=== PATIENT | female | born 1945 | race Caucasian/White ===

== ENCOUNTER → 2017-02-19 13:08 | Outpatient (CLI) | payer MEDICARE, OTHER ==
[2016-02-20 12:34] VITALS: BMI 32.8
[~2017-02-19 13:08] MED LIST: ALLER-CHLOR4 MG PO; BAYER CHEWABLE81 MG PO; COLACE100 MG PO; HEMOCYTE PLUS C1 CAP PO; HYDROCODONE-APA1 TAB PO; K-DUR20 MEQ PO; LANTUS INSULIN10 ML SC; LASIX40 MG PO; LISINOPRIL10 MG PO; LOPRESSOR25 MG PO; MULTIPLE VITAMI1 TA1 PO; SENOKOT-S TABLE1 TAB PO
== END | disposition home or self-care (01) ==
LOC: D.US 13:08
DX: I25.10 Atherosclerotic heart disease of native coronary artery without angina pectoris (principal); I73.9 Peripheral vascular disease, unspecified

== ENCOUNTER → 2017-05-22 13:56 | Outpatient (CLI) | payer MEDICARE, OTHER ==
[2016-02-20 12:34] VITALS: BMI 32.8
== END | disposition home or self-care (01) ==
LOC: D.MAMMO 09:00
DX: Z85.3 Personal history of malignant neoplasm of breast (principal)

== ENCOUNTER → 2017-09-30 07:38 | Outpatient (CLI) | payer MEDICARE, OTHER ==
[2016-02-20 12:34] VITALS: BMI 32.8
== END | disposition home or self-care (01) ==
LOC: D.CT 07:38
DX: R91.1 Solitary pulmonary nodule (principal)

== ENCOUNTER 2018-09-28 11:18 | Observation (INO) | payer MEDICARE, OTHER ==
[2018-09-28] VITALS (18 sets, daily range): BP systolic 130–177; BP diastolic 61–93; BMI 31.6
[~2018-09-28] VITALS: Ht 165.1 cm; Wt 86.8 kg
--- NOTE | ~2018-09-28 | MORECARE ---
CASE MANAGEMENT DISCHARGE SUMMARY PATIENT: LOLA AL UNIT: [id number] ADM DATE: 09/28/18 AGE: 73 : 45 SEX: F ROOM/BED: D.2111 AUTHOR: SHABBIR JOSEPH PHYSICIAN: REFERRING PHYSICIAN: MIRANDA NASH MD DATE OF SERVICE: 10/01/18 Discharge Plan Patient Name: LOLA AL Facility: [facility]:[place] : 1945 Planned Disposition: Home Anticipated Discharge Date: 09/30/18 Discharge Date: 09/30/2018 Expected LOS: 2 Initial Reviewer: [email or web address] Initial Review Date: 10/01/2018 Generated: 10/01/18 7:47 am Patient Name: LOLA AL Page 10719 at 0647 All edits/amendments must be made on the electronic document DICTATION DATE: 10/01/18646 FILM SORTER: CLEMENTE 10/01/18646 RPT#: [id number] DC DATE:09/30/18 STATUS: DIS IN [facility] [address] [place] [address] END OF REPORT
--- NOTE | ~2018-09-28 | HEMODYNAMI ---
PATIENT:LOLA AL MEDICAL RECORD: [id number] : 45 LOCATION:D. D.2111 ADMISSION DATE: 09/28/18 Generatedon:09/29/201815:49 Patient name: LOLA AL Patient #: [id number] SSN: D OB: 1945 Date of study: 09/29/2018 Page: Of Hemodynamic Procedure Report Patient Data Patient Demographics Procedure consent was obtained First Name: LOLA Gender: Female Last Name: MIKAELA : 1945 [facility] Initial: L Age: 73 year(s) Patient #: [id number] Race: Additional ID: [id number] Contact details [address]: [address] [place] [address] State: [place] City: [place] Zip code: [address] Past Medical History Allergies Allergen Reaction Date Comments Reported Penicillins 09/29/2018 Other allergy 09/29/2018 simvastatin, atorvastatin, nitrofurantin Admission Admission Data Admission Date: 09/28/2018 Admission Time: 13:36 Admit Source: Other Room #: D.2111 Procedure Procedure Types Cath Procedure Diagnostic Procedure [facility] w/Coronaries w/Grafts Sedation Charges Moderate Sedation up to 30 minutes PCI Procedure AMI/SVG/OUTDOOR ADVENTURE GUIDES PTCA or Stent SVG-BMS/SUPA Initial Procedure Description Procedure Date Procedure Date: 09/29/2018 Procedure Start Time: 15:10 Procedure End Time: 15:48 Procedure Staff Name Function Vanda Guerra RT Monitor Carl Amor RT Scrub Antonino Groves RN Nurse Polo Saxena RT Coremaker Apprentice Joe Jett MD Performing Physician Procedure Data Cath Procedure Fluoroscopy Diagnostic fluoroscopy Total fluoroscopy Time: 6.8 time: 6.8 min min Diagnostic fluoroscopy Total fluoroscopy dose: dose: 1185 mGy 1185 mGy Contrast Material Contrast Material Type Amount (ml) Isovue 300 134 Entry Location Entry Primary Successful Side Size Upsize Upsize Entry Closure Succes sful Closure Location (Fr) 1 (Fr) 2 (Fr) Remarks Device Remarks Femoral Right 5 Fr 6 Fr Exoseal artery Short Estimated blood loss: 10 ml Diagnostic catheters Device Type Used For End Catheter Placement MULTIPACK JL 4.0 5Fr Left Coronary catheter Angiography DIAGNOSTIC AR MOD 5Fr Right Coronary Catheter ([id number]) Angiography DIAGNOSTIC AR MOD 5Fr SVG Angiography Catheter ([id number]) DIAGNOSTIC IM 5Fr Internal mammary catheter ([id number]) arteriography MULTIPACK Pigtail 5 Fr LV Angiography catheter Procedure Complications No complications Procedure Medications Medication Administration Route Dosage Oxygen etCO2 Nasal cannula 2 l/min Lidocaine 2% added to field 20 Heparin Flush Bag added to field 2 bags (1000units/500ml NS) 0.9% NaCl I.V. 100 ml/hr Versed I.V. 1 mg Fentanyl I.V. 50 mcg Versed I.V. 1 mg Fentanyl I.V. 50 mcg Cardene Cardene I.C. 300 mcg Heparin Bolus I.V. 9000 units Plavix P.O. 75 mg Hemodynamics Rest Heart Rate: 72 (bpm) Pressure Samples Time Site Value (mmHg) Purpose Heart Use Rate(bpm) 15:20 LV 133/5,25 EDP 76 15:21 AO 134/61(92) Pullback 80 15:21 LV 138/7,36 Pullback 80 Gradients Valve Time Site 1 Site 2 Mean SEP/DFP Peak To Heart Use (mmHg) (sec/min) Peak Rate (mmHg) (bpm) Aortic 15:21 LV AO 8 24 4 80 138/7,36 134/61(92) Calculations Valve P-P Mean Valve Index Valve Source Name Gradient Area Flow (cm2) Aortic 4 8 4 8 Snapshots Pre Cath Intra NCS Post Cath Vital Signs Time Heart Resp SPO2 etCO2 NIBP (mmHg) Rhythm Pain Sedation Rate (ipm) (%) (mmHg) Status Level (bpm) 14:59:58 74 24 95 33.2 161/84(138) NSR 0 (11) 10(A) , No pain 15:04:18 74 26 94 21.9 151/82(124) NSR 0 (11) 10(A) , No pain 15:08:30 72 20 93 29.5 133/71(110) NSR 0 (11) 10(A) , No pain 15:12:46 72 16 94 10.6 128/69(104) NSR 0 (11) 9(A) , No pain 15:17:00 76 17 94 40.8 127/73(106) NSR 0 (11) 9(A) , No pain 15:21:14 87 16 94 39.3 125/70(100) NSR 0 (11) 9(A) , No pain 15:25:30 75 17 94 40.8 122/63(92) NSR 0 (11) 9(A) , No pain 15:29:42 74 16 95 41.6 116/67(91) NSR 0 (11) 9(A) , No pain 15:33:54 76 16 94 40.8 112/65(80) NSR 0 (11) 9(A) , No pain 15:38:04 78 17 93 41.6 110/65(87) NSR 0 (11) 9(A) , No pain 15:42:14 77 18 94 41.6 116/65(94) NSR 0 (11) 9(A) , No pain 15:46:24 81 20 95 37.1 125/71(99) NSR 0 (11) 10(A) , No pain Medications Time Medication Route Dose Verified Delivered Reason Notes Effectiveness by by 15:02:39 Oxygen etCO2 2 Buffie Buffie used for Nasal l/min Yaneli Groves RN procedure cannula 15:03:04 Lidocaine 2% added 20ml Buffie Joe for local to vial Yaneli Jett MD anesthetic field 15:03:09 Heparin Flush added 2 Buffie Joe used for Bag to bags Yaneli Jett MD procedure (1000units/500ml field NS) 15:03:18 0.9% NaCl I.V. 100 Buffie Buffie Per physician ml/hr Yaneli Groves RN 15:06:42 Versed I.V. 1 mg Buffie Buffie for sedation Yaneli Groves RN 15:06:47 Fentanyl I.V. 50 Buffie Buffie for sedation mcg Yaneli Groves RN 15:18:51 Versed I.V. 1 mg Buffie Buffie for sedation Yaneli Groves RN 15:18:55 Fentanyl I.V. 50 Buffie Buffie for sedation mcg Yaneli Groves RN 15:30:51 Cardene mcg- Buffie Buffie Mixed on Yaneli Groves RN and field ready for use on the table. 15:32:27 Cardene I.C. 300 Buffie Buffie for mcg Yaneli Groves RN vasodilation 15:32:38 Heparin Bolus I.V. 9000 Buffie Buffie for verif ied units Yaneli Groves RN anticoagulation with dr jett 15:47:17 Plavix P.O. 75 mg Buffie Buffie for Yaneli Groves RN antiplatelet therapy Procedure Log Time Note 14:37:04 Informed consent obtained and on chart 14:37:06 Admit Source: Other 14:37:32 Diagnostic Cath status Elective 14:37:34 Polo Saxena RT(R) sent for patient. Start room use. 14:37:34 Time tracking: Regular hours (M-F 7:00 - 5:00) 14:37:37 Plan of Care:Hemodynamics will remain stable., Cardiac rhythm will remain stable., Comfort level will be maintained., Respiratory function will remain adequate., Patient/ family verbilizes understanding of procedure., Procedure tolerated without complication., Recovers from procedure without complications.. 14:50:11 Patient received from PCU to CCL 2 Alert and oriented. Tansferred to table in Supine position. 14:50:12 Warm blankets applied, and edwin hugger turned on for patient comfort. 14:50:13 Correct patient and procedure confirmed by team. 14:50:14 ECG and BP/O2 sat monitors applied to patient. 14:50:15 Full Disclosure recording started 14:58:45 Vital chart was started 14:58:49 Rhythm: sinus rhythm 14:59:05 H&P Date Dictated: 09/28/2018 Within 30 days and on chart.. 14:59:07 Pre-procedure instructions explained to patient. 14:59:08 Pre-op teaching completed and patient verbalized understanding. 14:59:09 Family in patients room. 14:59:12 Patient NPO since Midnight. 14:59:21 Patient allergic to Penicillins 15:00:19 Patient allergic to Other allergysimvastatin, atorvastatin, nitrofurantin 15:00:21 Is the patient allergic to Iodine/contrast media? No. 15:00:23 Is patient on blood thinner?Yes 15:00:26 ACC The patient was administered the following blood thiners within the last 24 hours: ACCPlavix 15:00:28 Patient diabetic? Yes. 15:00:34 If diabetic: On Metformin? No 15:00:37 Previous problem with sedation/anesthesia? No ? 15:00:38 Snore? Yes 15:00:39 Sleep apnea? No 15:00:40 Deviated septum? No 15:00:41 Opens mouth fully? Yes 15:00:42 Sticks out tongue? Yes 15:00:43 Airway obstruction? No ? 15:00:45 Dentures? No ? 15:00:47 Pre procedure: right dorsailis pedis pulse 2+ Normal; easily identifiable; not easily obliterated 15:00:51 Patient pain scale 0/10 ?. 15:00:57 IV patent on arrival in right hand with 0.9% NaCl at [facility]. 15:01:00 Lab results completed and on chart. 15:01:04 Right groin area was prepped with chlora-prep and draped in sterile fashion 15:01:04 Alarms reviewed by R. N. 15:01:05 Sharps counted by scrub and verified by R.N. 15:01:09 Use device set Femoral Dx 15:01:09 ACIST Syringe (02701) opened to sterile field. 15:01:10 Bag Decanter (2002S) opened to sterile field. 15:01:10 Medline Cath Pack ([id number]) opened to sterile field. 15:01:11 DIAGNOSTIC WIRE .035 260cm J wire (346229) opened to sterile field. 15:01:12 ACIST Hand Control (46917) opened to sterile field. 15:01:13 ACIST Manifold (59902) opened to sterile field. 15:01:13 DIAGNOSTIC Multipack 5Fr catheter set (LW7274) opened to sterile field. 15:01:14 Tegaderm 4 x 4 (1626W) opened to sterile field. 15:01:15 SHEATH 5FR [place] (DZK117) opened to sterile field. 15:02:39 Oxygen 2 l/min etCO2 Nasal cannula was administered by Antonino Groves RN; used for procedure; 15:03:04 Lidocaine 2% 20ml vial added to field was administered by Joe Jett MD; for local anesthetic; 15:03:09 Heparin Flush Bag (1000units/500ml NS) 2 bags added to field was administered by Joe Jett MD; used for procedure; 15:03:18 0.9% NaCl 100 ml/hr I.V. was administered by Buffie Groves RN; Per physician; 15:05:35 Final Timeout: patient, procedure, and site verified with staff and physician. All members of the team are in agreement. 15:05:37 Right groin site verified by team. 15:05:40 Physical assessment completed. ASA score P 2 - A patient with mild systemic disease as per Vanda Counts RT(R). 15:05:44 Sedation plan: IV Moderate Sedation Medication:Versed, Fentanyl 15:05:52 Baseline sample Acquired. 15:06:42 Versed 1 mg I.V. was administered by Antonino Groves RN; for sedation; 15:06:47 Fentanyl 50 mcg I.V. was administered by Antonino Groves RN; for sedation; 15:10:33 Zero performed for pressure channel P1 15:10:38 Procedure started. 15:10:41 Local anesthetic to right femoral artery with Lidocaine 2% by Joe Jett MD.INITIAL ACCESS ONLY 15:11:04 Procedure type changed to Cath procedure, Diagnostic procedure, LHC, LHC w/Coronaries w/Grafts, Sedation Charges, Moderate Sedation up to 30 minutes, PCI procedure, AMI/SVG/OUTDOOR ADVENTURE GUIDES PTCA or Stent, SVG-BMS/SUPA Initial 15:11:47 A 5 Fr sheath was inserted into the Right Femoral artery 15:12:32 A MULTIPACK JL 4.0 5Fr catheter was advanced over the wire and used for Left Coronary Angiography. 15:14:32 Catheter removed. 15:14:37 A DIAGNOSTIC AR MOD 5Fr Catheter ([id number]) was advanced over the wire and used for Right Coronary Angiography. 15:15:43 A DIAGNOSTIC AR MOD 5Fr Catheter (656519M) was advanced over the wire and used for SVG Angiography. to DIAG 15:16:52 Catheter removed. 15:17:10 A DIAGNOSTIC IM 5Fr catheter ([id number]) was advanced over the wire and used for Internal mammary arteriography. TO LAD, OCCLUDED 15:18:51 Versed 1 mg I.V. was administered by Antonino Groves RN; for sedation; 15:18:55 Fentanyl 50 mcg I.V. was administered by Antonino Groves RN; for sedation; 15:19:18 Zero performed for pressure channel P1 15:20:27 Catheter removed. 15:20:32 A MULTIPACK Pigtail 5 Fr catheter was advanced over the wire and used for LV Angiography. 15:20:47 LV gram done using LANTIGUA 15:20:50 Injector settings: Ml/sec: 10, Volume: 20, 15:20:56 EF : 55 % 15:20:57 LV hemodynamics recorded. 15:24:00 Catheter removed. 15:24:27 Use device set JETT PCI 15:24:29 SHEATH 6FR [place] (UBG198) opened to sterile field. 15:24:33 TUBING High Pressure Extension Tubing (Zane) (UR1155J) opened to sterile field. 15:24:34 INFLATOR Merit BasixCompak (IW2071) opened to sterile field. 15:25:00 WHISPER 300cm guide wire ([id number]) opened to sterile field. 15:27:02 Sheath upsized to a 6 Fr Short. 15:28:35 6 Fr AR 1.0 guide catheter was inserted over the wire 15:28:40 GUIDE 6FR AR 1.0 catheter (IJ5UI10) opened to sterile field. 15:30:51 Cardene mcg- on field was administered by Antonino Groves RN; ; Mixed and ready for use on the table. 15:32:27 Cardene 300 mcg I.C. was administered by Antonino Groves RN; for vasodilation; 15:32:38 Heparin Bolus 9000 units I.V. was administered by Antonino Groves RN; for anticoagulation; verified with dr jett 15:33:49 WHISPER. wire advanced. 15:35:29 Inflate balloon Inflation number: 1 A EUPHORA 2.5 x 15 Balloon ([id number]) was prepped and advanced across the Aorta Left -> 1st Diag, then inflated to 12 TONI for 0:16 (min:sec). 15:35:41 Inflation number: 2 The EUPHORA 2.5 x 15 Balloon ([id number]) was reinflated across the Aorta Left -> 1st Diag, to 12 TONI for 0:09 (min:sec). 15:37:12 Balloon removed over the wire. 15:40:11 Place stent Inflation Number: 1 A MAX RX 5.0 x 18 stent ([id number]) was prepped and advanced across the Aorta Left -> 1st Diag1. The stent was deployed at 100 TONI for 0:38 (min:sec). 15:44:26 Stent catheter was removed intact over wire. 15:44:34 Wire removed. 15:44:34 Guide catheter removed. 15:44:42 Sheath removed intact; hemostasis achieved with Exoseal to the Right Femoral artery. 15:44:44 Procedure ended.(Physican Out) 15:45:03 EXOSEAL 6Fr (EX600) opened to sterile field. 15:45:19 Fluoroscopy time 06.80 minutes. 15:45:25 Flurop Dose total: 1185 15:45:25 Fluoroscopy dose: 1185 mGy 15:45:33 Contrast amount:Isovue 300 134ml. 15:45:35 Sharps counted by scrub and verified by R.N. 15:45:36 Insertion/operative site no bleeding no hematoma. 15:45:38 Post-op/insertion site Right Femoral artery dressed using a 4 x 4 and Tegaderm. 15:45:41 Post right femoral artery:stable, clean and dry 15:45:42 Post Procedure Pulses reassessed and unchanged 15:45:44 Post-procedure physical assessment completed. ASA score P 2 - A patient with mild systemic disease as per Joe Jett MD. 15:45:52 Post procedure rhythm: unchanged. 15:45:54 Estimated blood loss: 10 ml 15:45:55 Post procedure instruction explained to patient.Patient verbalizes understanding. 15:45:56 Patient needs reinforcement of post procedure teaching. 15:46:35 Procedure Complication : No complications 15:46:37 See physician's report for complete and final results. 15:47:17 Plavix 75 mg P.O. was administered by Antonino Groves RN; for antiplatelet therapy; 15:47:27 Procedure and supply charges have been captured, reviewed, submitted and are correct. 15:48:10 Vital chart was stopped 15:48:13 Report given to PCU. 15:48:16 Patient transfered to PCU with Bed. 15:48:25 Procedure ended. 15:48:25 Full Disclosure recording stopped 15:48:36 End room use (Document Last) Intervention Summary Intervention Notes Time ActionType Lesion and Equipment Used Action# Pressure Duration Attributes 15:35:29 Inflate Aorta Left EUPHORA 2.5 x 1 12 00:16 balloon -> 1st Diag 15 Balloon ([id number]) 15:35:41 Reinflate Aorta Left EUPHORA 2.5 x 2 12 00:09 balloon -> 1st Diag 15 Balloon ([id number]) 15:40:11 Place stent Aorta Left MAX RX 5.0 x 1 100 00:38 -> 1st 18 stent Diag1 ([id number]) Device Usage Item Name Manufacture Quantity Catalog [facility] Lot# / Number Charge Number Stock Stock Serial# Code ACIST Syringe Acist 1 85734 277916 091782 159853 20 (05435) Medical Systems Inc Bag Decanter Microtek 1 641951 82811 241610 5 () Medical Inc. Medline Cath Medline 1 [id number] 242647 43071 978665 5 Pack ([id number]) DIAGNOSTIC St Ric 1 714049 527631 325709 056278 30 WIRE .035 260cm J wire (483852) ACIST Hand Acist 1 39588 943280 316407 576861 5 Control Medical (63199) Systems Inc ACIST Manifold Acist 1 87299 785543 919841 033050 5 (64941) Medical Systems Inc DIAGNOSTIC Cardinal 1 [id number] 028108 72535 143802 30 Multipack 5Fr Health catheter set (CT0274) Tegaderm 4 x 4 3M 1 1626W 767057 322902 180277 5 (1626W) SHEATH 5FR Terumo 1 UJI870 828829 435993 899913 40 [place] (KQD786) MULTIPACK JL Cardinal 1 806758 5 4.0 5Fr Health catheter DIAGNOSTIC AR Cardinal 1 [id number] 195173 296033 112140 15 MOD 5Fr Health Catheter (035153G) DIAGNOSTIC IM Cardinal 1 [id number] 040318 327213 701265 5 5Fr catheter Health (457693U) MULTIPACK Cardinal 1 894148 5 Pigtail 5 Fr Health catheter SHEATH 6FR Terumo 1 EWU839 477752 807514 484189 40 [place] (DLY221) TUBING High Merit 1 [id number] 827095 12732 669310 10 Pressure Medical Extension Tubing (Jett) (DI5770E) INFLATOR Merit Merit 1 NX6831 548542 138574 389929 15 [facility] (TE9244) WHISPER 300cm Valdez 1 [id number] 696676 313929 734150 5 guide wire Vascular (0521074FQ) GUIDE 6FR AR Medtronic 1 [id number] 065697 89986 935115 1 1.0 catheter (ZB5SY79) EUPHORA 2.5 x Medtronic 1 [id number] 461873 929090 725111 5 [id number] 15 Balloon (PAY3051E) MAX RX 5.0 x Medtronic 1 [id number] 781031 6035506 515767 5 [id number] 18 stent ([id number]) EXOSEAL 6Fr Cardinal 1 EX600 067313 903415 349673 10 (EX600) Health Signature Audit Gilbert Stage Time Signature Unsigned Intra-Procedure 09/29/2018 Vanda 3:48:49 PM Counts RT(R) Signatures Monitor : Vanda Signature : Counts RT Date : Time : [place] [id number] [place] [address]
[2018-09-28 11:56] LABS: BASOPHILS 0.9 % (0-2); EOSINOPHILS 2.6 % (0-7); HEMATOCRIT 41.3 % (36.0-48.0); HEMOGLOBIN 13.9 g/dL (12-16); IMMATURE GRANULOCYTES 0.1 % (0-5); LYMPHOCYTES 40.8 % (15-50); MCHC 33.7 g/dL (31.0-37.0); MCV 89.2 fL (80.0-100.0); MEAN PLATELET VOLUME 11.1 fL (7.4-10.4); MONOCYTES 8.3 % (2-11); NEUTROPHILS 47.3 % (40-80); RBC 4.63 10x6/uL (4.00-5.40); RDW 13.3 % (11.5-14.5); WBC 8.1 10x3/uL (4.8-10.8)
[2018-09-28 11:57] LABS: PLATELET COUNT 233 10x3/uL (130-400)
[2018-09-28 12:16] LABS: ALBUMIN 3.4 g/dL (3.4-5.0); ALKALINE PHOSPHATASE 72 U/L (46-116); ALT (SGPT) 21 U/L (10-68); BILIRUBIN - TOTAL 0.38 mg/dL (0.2-1.3); CALC OSMOLALITY 279 mosm/kg (275-300); CALCIUM 8.8 mg/dL (8.5-10.1); CARBON DIOXIDE 30.1 mmol/L (21.0-32.0); CHLORIDE - SERUM 105 mmol/L (98-107); CREATININE - SERUM 0.8 mg/dL (0.6-1.3); GLUCOSE 124 mg/dL (74-106); POTASSIUM - SERUM 3.7 mmol/L (3.5-5.1); PROTEIN - SERUM 7.6 g/dL (6.4-8.2); SODIUM 141 mmol/L (136-145); UREA NITROGEN 8 mg/dL (7-18); eGFR NON AFRICAN AMERICAN 74 mL/min (90-120)
[2018-09-28 12:25] LABS: CKMB 0.9 U/L (0.0-3.6); CREATINE KINASE 57 UL (21-215); MAGNESIUM - SERUM 1.9 mg/dL (1.8-2.4); PRO BNP 2626 pg/mL (0-125); TROPONIN-I < 0.017 ng/mL (0.000-0.060)
[2018-09-28 14:43] LABS: CREATINE KINASE 115 UL (21-215); TROPONIN-I < 0.017 ng/mL (0.000-0.060)
[2018-09-28 19:58] LABS: CKMB 0.5 U/L (0.0-3.6); CREATINE KINASE 62 UL (21-215)
[2018-09-28 20:09] LABS: TROPONIN-I < 0.017 ng/mL (0.000-0.060)
[2018-09-28] MEDS ORDERED: VITAMIN E400 UNI2 PO (21:29)
[2018-09-28] MEDS ORDERED: METOPROLOL TART25 MG PO (21:30)
[2018-09-28] MEDS ORDERED: LISINOPRIL10 MG PO (21:31)
[2018-09-29] VITALS (8 sets, daily range): BP systolic 129–149; BP diastolic 60–80; Ht 165.1 cm; Wt 86.8 kg
[2018-09-29 02:47] LABS: CKMB 0.6 U/L (0.0-3.6); CREATINE KINASE 41 UL (21-215); TROPONIN-I < 0.017 ng/mL (0.000-0.060)
[2018-09-29 08:41] LABS: ANION GAP 10.9 mmol/L (8-16); CALCIUM 8.6 mg/dL (8.5-10.1); CARBON DIOXIDE 28.9 mmol/L (21.0-32.0); POTASSIUM - SERUM 3.8 mmol/L (3.5-5.1)
[2018-09-29 08:42] LABS: BASOPHILS 1.2 % (0-2); EOSINOPHILS 3.5 % (0-7); HEMATOCRIT 40.1 % (36.0-48.0); HEMOGLOBIN 13.2 g/dL (12-16); IMMATURE GRANULOCYTES 0.1 % (0-5); LYMPHOCYTES 33.5 % (15-50); MCH 29.8 pg (26.0-34.0); MCHC 32.9 g/dL (31.0-37.0); MCV 90.5 fL (80.0-100.0); MEAN PLATELET VOLUME 11.7 fL (7.4-10.4); MONOCYTES 8.5 % (2-11); NEUTROPHILS 53.2 % (40-80); PLATELET COUNT 250 10x3/uL (130-400); RBC 4.43 10x6/uL (4.00-5.40); RDW 13.7 % (11.5-14.5); WBC 7.8 10x3/uL (4.8-10.8)
[2018-09-29 12:34] LABS: CHOL - HDL RATIO 4.4 ratio (2.3-4.1); LDL-HDL RATIO 2.8 ratio (1.5-3.5)
[2018-09-30 00:35] VITALS: BP 122/58
[2018-09-30 06:08] VITALS: BP 130/63
[2018-09-30 06:35] LABS: BASOPHILS 0.9 % (0-2); EOSINOPHILS 2.7 % (0-7); HEMATOCRIT 40.3 % (36.0-48.0); HEMOGLOBIN 13.3 g/dL (12-16); IMMATURE GRANULOCYTES 0.1 % (0-5); LYMPHOCYTES 32.3 % (15-50); MCH 29.9 pg (26.0-34.0); MCV 90.6 fL (80.0-100.0); MEAN PLATELET VOLUME 11.1 fL (7.4-10.4); MONOCYTES 9.8 % (2-11); NEUTROPHILS 54.2 % (40-80); PLATELET COUNT 215 10x3/uL (130-400); RBC 4.45 10x6/uL (4.00-5.40); RDW 13.7 % (11.5-14.5)
[2018-09-30 06:51] LABS: CALCIUM 8.2 mg/dL (8.5-10.1); CARBON DIOXIDE 26.2 mmol/L (21.0-32.0); CREATININE - SERUM 0.8 mg/dL (0.6-1.3)
[2018-09-30 07:07] LABS: ANION GAP 12.8 mmol/L (8-16)
[2018-09-30 07:48] VITALS: BP 122/61
[2018-09-30] MEDS ORDERED: LISINOPRIL5 MG PO (08:50)
[2018-09-30] MEDS ORDERED: PLAVIX75 MG PO (08:50)
[2018-09-30] MEDS ORDERED: ASPIRIN325 MG PO (08:50)
== END 2018-09-30 11:34 | disposition home or self-care (01) ==
LOC: D.ER 11:18 → D.EDHOLD 13:36 → OBSVTIME 13:36 → D.M2 19:28
PROVIDERS: Family Medicine; Internal Medicine Cardiovascular Disease; Internal Medicine Nephrology
DX: I25.110 Atherosclerotic heart disease of native coronary artery with unstable angina pectoris (principal); I10 Essential (primary) hypertension; E11.9 Type 2 diabetes mellitus without complications; Z86.73 Personal history of transient ischemic attack (TIA), and cerebral infarction without residual deficits
CPT/HCPCS: 93459; C9600